=== PATIENT | female | born 1965 | race Caucasian/White ===

== ENCOUNTER 2018-02-18 12:02 | Outpatient (CLI) | payer OTHER | END 2018-02-18 15:00 | disposition home or self-care (01) | LOC: RAD 12:02 | DX: Z76.0 Encounter for issue of repeat prescription (principal); E11.65 Type 2 diabetes mellitus with hyperglycemia; I10 Essential (primary) hypertension; M79.641 Pain in right hand ==

== ENCOUNTER 2018-10-03 09:41 | Outpatient (CLI) | payer OTHER | END 2018-10-03 10:31 | disposition home or self-care (01) | LOC: MAMO-SONO 09:41 | DX: E11.69 Type 2 diabetes mellitus with other specified complication (principal); I10 Essential (primary) hypertension; E66.8 Other obesity; Z12.39 Encounter for other screening for malignant neoplasm of breast; Z12.31 Encounter for screening mammogram for malignant neoplasm of breast ==

== ENCOUNTER 2020-03-26 12:48 | Outpatient (CLI) | payer OTHER | END 2020-03-26 13:00 | disposition home or self-care (01) | LOC: MAMO-SONO 12:48 | PROVIDERS: ATTEND General Practice | DX: Z12.31 Encounter for screening mammogram for malignant neoplasm of breast (principal) ==

== ENCOUNTER 2020-10-23 13:17 | Outpatient (CLI) | payer OTHER | END 2020-10-23 13:30 | disposition home or self-care (01) | LOC: MAMO-SONO 13:17 | PROVIDERS: ATTEND Surgery | DX: N60.11 Diffuse cystic mastopathy of right breast (principal); N60.12 Diffuse cystic mastopathy of left breast; R92.0 Mammographic microcalcification found on diagnostic imaging of breast ==

== ENCOUNTER 2021-06-09 10:49 | Outpatient (CLI) | payer OTHER | END 2021-06-09 11:00 | disposition home or self-care (01) | LOC: MAMO-SONO 10:49 | PROVIDERS: ATTEND Surgery | DX: R92.1 Mammographic calcification found on diagnostic imaging of breast (principal); N60.11 Diffuse cystic mastopathy of right breast; N60.12 Diffuse cystic mastopathy of left breast ==

== ENCOUNTER 2022-06-09 09:51 | Outpatient (CLI) | payer OTHER | END 2022-06-09 10:11 | disposition home or self-care (01) | LOC: MAMO-SONO 09:51 | DX: Z12.31 Encounter for screening mammogram for malignant neoplasm of breast (principal); N60.11 Diffuse cystic mastopathy of right breast ==